=== PATIENT | male | born 1960 | race Caucasian/White ===

== ENCOUNTER 2024-04-01 17:41 | Inpatient (IN) ==
[2024-04-01 18:34] LABS: Basophils # (Auto) 0.06 K/mcL (0.00-0.30); Basophils % (Auto) 0.5 % (0.0-2.0); Eosinophils # (Auto) 0.28 K/mcL (0.00-0.70); Eosinophils % (Auto) 2.2 % (0.0-7.0); Hematocrit 45.5 % (40.1-51.0); Hemoglobin 15.3 g/dL (13.7-17.5); Lymphocytes # (Auto) 3.18 K/mcL (1.50-4.80); Lymphocytes % (Auto) 24.9 % (15.5-49.0); Mean Cell Volume 90.6 fL (80.0-100.0); Mean Corpuscular HGB Conc 33.6 g/dL (31.0-36.0); Mean Platelet Volume 9.4 fL (8.8-12.5); Monocytes # (Auto) 1.04 K/mcL (0.10-0.90); Monocytes % (Auto) 8.2 % (1.0-12.0); Platelet Count 297 K/mcL (140-440); RBC 5.02 M/mcL (4.63-6.08); Red Cell Distribution Width 12.3 % (11.5-14.5); WBC 12.8 K/mcL (4.5-11.0)
[2024-04-01] MEDS: HYDROmorphone 1 MG/ML SYRINGE IV ONE ×2 (18:35→20:00)
[2024-04-01] MEDS: ONDANSETRON 4 MG/2 ML VIAL IV ONE (18:35)
[2024-04-01 18:53] LABS: ALT/SGPT 21 U/L (<40); AST/SGOT 23 U/L (<40); Albumin 4.4 gm/dL (3.2-5.2); Albumin/Globulin Ratio 1.5 (1.0-2.3); Alkaline Phosphatase 90 U/L (39-117); Bilirubin,Total 0.2 mg/dL (0.1-1.0); Blood Urea Nitrogen 19 mg/dL (8-23); Calcium 9.6 mg/dL (8.6-10.4); Carbon Dioxide 21 mmol/L (22-30); Chloride 97 mmol/L (96-108); Glomerular Filtration Rate 95; Glucose 102 mg/dL (70-105); Potassium 3.7 mmol/L (3.3-5.1); Sodium 135 mmol/L (133-145)
[2024-04-01] MEDS: 0.9 % SODIUM CHLORIDE 1,000 ML IV ONE (20:55)
[2024-04-01] MEDS ORDERED: ONDANSETRON 4 MG/2 ML VIAL IV PRN (22:04)
[2024-04-01] MEDS: PIPERACILLIN SODIUM/TAZOBACTAM 3.375 GM in DEXTROSE 5% IN WATER 50 ML IV ONE (22:25)
[2024-04-01] MEDS: PANTOPRAZOLE 40 MG VIAL IV ONE (22:37)
[2024-04-01] MEDS: CIPROFLOXACIN 400 MG/200 ML BAG IV SCH (23:14)
[2024-04-01] MEDS: HYDROmorphone 0.5 MG/0.5 ML SYRINGE IV PRN (23:18)
[2024-04-02] MEDS: HYDROmorphone 0.5 MG/0.5 ML SYRINGE IV PRN ×2 (00:27→04:18)
[2024-04-02] MEDS: HYDROmorphone 1 MG/ML SYRINGE ONE ×3 (00:30→04:19)
[2024-04-02] MEDS: HYDROmorphone 0.5 MG/0.5 ML SYRINGE ONE ×2 (00:30→06:08)
[2024-04-02] MEDS: metroNIDAZOLE 500 MG/100 ML BAG IV SCH (00:31)
[2024-04-02] MEDS: DEXTROSE 5%-LR 1,000 ML IV SCH (02:10)
[2024-04-02] MEDS: ACETAMINOPHEN 650 MG/65 ML BAG IV PRN (03:54)
[2024-04-02] MEDS: KETOROLAC 15 MG/ML VIAL IV ONE (04:16)
[2024-04-02] MEDS: KETOROLAC 15 MG/ML VIAL ONE (04:19)
[2024-04-02] MEDS: ACETAMINOPHEN 1,000 MG/100 ML BAG IV SCH (04:20)
[2024-04-02 06:12] LABS: Hematocrit 39.6 % (40.1-51.0); Hemoglobin 13.3 g/dL (13.7-17.5); Mean Cell Volume 91.9 fL (80.0-100.0); Mean Corpuscular HGB Conc 33.6 g/dL (31.0-36.0); Mean Platelet Volume 9.7 fL (8.8-12.5); Platelet Count 252 K/mcL (140-440); RBC 4.31 M/mcL (4.63-6.08); Red Cell Distribution Width 12.6 % (11.5-14.5); WBC 9.9 K/mcL (4.5-11.0)
[2024-04-02 06:40] LABS: Appearance,Urine Clear (Clear); Bilirubin,Urine Negative (Negative); Color,Urine Yellow; Glucose,Urine (UA) Negative (Negative); Ketones,Urine Negative (Negative); Leukocyte Esterase,Urine Negative /uL (Negative); Nitrate,Urine Negative (Negative); Protein,Urine Negative (Negative); Urine Blood Negative ery/mcL (Negative); Urine RBC 0 /hpf (0-3); Urine Squamous Epithelial Cell 0 /hpf (0-4); Urine WBC 0 /hpf (0-4); Urobilinogen,Urine Normal
[2024-04-02 06:49] LABS: Blood Urea Nitrogen 15 mg/dL (8-23); Calcium 8.6 mg/dL (8.6-10.4); Carbon Dioxide 26 mmol/L (22-30); Chloride 102 mmol/L (96-108); Glomerular Filtration Rate 95; Glucose 113 mg/dL (70-105); Potassium 3.9 mmol/L (3.3-5.1); Sodium 137 mmol/L (133-145)
[2024-04-02] MEDS: LACTULOSE 20 GM/30 ML ORAL.SOL PO SCH (09:19)
[2024-04-02] MEDS: METOCLOPRAMIDE 10 MG/2 ML VIAL IV PRN (16:06)
[2024-04-02] MEDS: PANTOPRAZOLE 40 MG TABLET PO SCH (17:10)
[2024-04-03 06:38] LABS: Hematocrit 40.5 % (40.1-51.0); Hemoglobin 12.7 g/dL (13.7-17.5); Mean Cell Volume 98.5 fL (80.0-100.0); Mean Corpuscular HGB Conc 31.4 g/dL (31.0-36.0); Mean Platelet Volume 9.6 fL (8.8-12.5); Platelet Count 217 K/mcL (140-440); RBC 4.11 M/mcL (4.63-6.08); Red Cell Distribution Width 12.7 % (11.5-14.5)
[2024-04-03 06:57] LABS: Blood Urea Nitrogen 8 mg/dL (8-23); Calcium 8.8 mg/dL (8.6-10.4); Carbon Dioxide 23 mmol/L (22-30); Chloride 104 mmol/L (96-108); Glomerular Filtration Rate 101; Glucose 108 mg/dL (70-105); Potassium 3.9 mmol/L (3.3-5.1); Sodium 137 mmol/L (133-145)
[2024-04-03] MEDS ORDERED: ACETAMINOPHEN 1,000 MG/100 ML BAG IV PRN (22:18)
[2024-04-04] MEDS: DEXTROSE 5%-LR 1,000 ML IV SCH (00:26)
[2024-04-04 06:01] LABS: Hematocrit 38.7 % (40.1-51.0); Mean Cell Volume 91.9 fL (80.0-100.0); Mean Corpuscular HGB Conc 33.6 g/dL (31.0-36.0); Mean Platelet Volume 10.2 fL (8.8-12.5); Platelet Count 254 K/mcL (140-440); RBC 4.21 M/mcL (4.63-6.08); Red Cell Distribution Width 12.4 % (11.5-14.5); WBC 7.1 K/mcL (4.5-11.0)
[2024-04-04 06:32] LABS: Blood Urea Nitrogen 6 mg/dL (8-23); Calcium 8.8 mg/dL (8.6-10.4); Carbon Dioxide 27 mmol/L (22-30); Chloride 106 mmol/L (96-108); Glomerular Filtration Rate 95; Glucose 97 mg/dL (70-105); Sodium 141 mmol/L (133-145)
[2024-04-05] MEDS: LACTULOSE 20 GM/30 ML ORAL.SOL PO SCH (08:32)
[2024-04-06] MEDS: LEVOTHYROXINE 150 MCG TABLET PO SCH (07:27)
[2024-04-06 15:53] VITALS: TEMP 97.7; O2SAT 100
== END 2024-04-06 15:19 | disposition home or self-care (01) | DRG 392 ==
LOC: ED 17:41 → MEDSUR 22:56
PROVIDERS: ADMIT Surgery Surgical Critical Care; ATTEND Family Medicine Adult Medicine